=== PATIENT | male | born 1945 | race Caucasian/White ===

== ENCOUNTER 2017-09-10 10:04 | Emergency (ER) | payer MEDICARE, BC ==
[~2017-09-10] VITALS: Ht 170.2 cm; Wt 94.0 kg
[2017-09-10 10:09] VITALS: BP 158/79; PULSE 90; RESP 16; TEMP 98; O2SAT 97
[2017-09-10] MEDS ORDERED: ATOR20TA15 PO (10:56)
[2017-09-10] MEDS ORDERED: ASPI-516 CHEW (10:56)
[2017-09-10] MEDS ORDERED: LISI-519 PO (10:56)
[2017-09-10] MEDS ORDERED: METO25TA3 PO (10:56)
[2017-09-10] MEDS ORDERED: GABA600T PO (10:56)
--- NOTE | 2017-09-10 11:11 | PD ---
HPI Chief Complaint: Cold / Flu Symptoms Time Seen by Provider: 11:05 Travel History International Travel<30 days: No Contact w/Intl Traveler<30days: No Traveled to known affect area: No History of Present Illness HPI 72yo M with PMH of CAD s/p stent here with c/o cough and chest congestion for 1 week. Pt said he drove down from [place] 2 days ago because his brother was in hospice. Pt has been more stress lately and unable to sleep. Said he feels sob but it is more because he is coughing and has congestion. Denies any chest pain, fever, n/v, abdominal pain, focal weakness or numbness. PFSH Past Medical History Cardiovascular Problems: Yes High Cholesterol: Yes Hypertension: Yes Medical other: Yes (RESTLESS LEG) Myocardial Infarction: Yes Past Surgical History Appendectomy: Yes Other Surgery: Yes (NASAL) Social History Alcohol Use: No Tobacco Use: No Substance Use: No Allergies-Medications (Allergen,Severity, Reaction): Coded Allergies: No Known Allergies (Unverified , 09/10/17) Reported Meds & Prescriptions Reported Meds & Active Scripts Active Reported Aspirin 81 Mg Chew 81 Mg CHEW DAILY Atorvastatin (Atorvastatin Calcium) 20 Mg Tab 20 Mg PO HS Metoprolol Tartrate 25 Mg Tab Unknown Dose PO DAILY Gabapentin 600 Mg Tab 600 Mg PO DAILY Lisinopril 5 Mg Tab 5 Mg PO DAILY Review of Systems Except as stated in HPI: all other systems reviewed are Neg Physical Exam Narrative GENERAL: 72yo M not in distress. SKIN: Focused skin assessment warm/dry. HEAD: Atraumatic. Normocephalic. EYES: Pupils equal and round. No scleral icterus. No injection or drainage. ENT: Throat: Clear. Uvula midline. NECK: Trachea midline. No JVD. CARDIOVASCULAR: Regular rate and rhythm. No murmur appreciated. RESPIRATORY: No accessory muscle use. Clear to auscultation. Breath sounds equal bilaterally. GASTROINTESTINAL: Abdomen soft, non-tender, nondistended. MUSCULOSKELETAL: No obvious deformities. No clubbing. No cyanosis. No edema. NEUROLOGICAL: Awake and alert. No obvious cranial nerve deficits. Motor grossly within normal limits in all extremities. Normal speech. PSYCHIATRIC: Appropriate mood and affect; insight and judgment normal. Data Data Last Documented VS Vital Signs Date Time Temp Pulse Resp B/P (MAP) Pulse Ox O2 Delivery O2 Flow Rate FiO2 09/10/17 12:35 76 20 133/71 (91) 96 09/10/17 10:09 98.0 Orders Orders Complete Blood Count With Diff (09/10/17 11:06) Basic Metabolic Panel (Bmp) (09/10/17 11:06) D-Dimer (09/10/17 11:06) Act Partial Throm Time (Ptt) (09/10/17 11:06) Prothrombin Time / Inr (Pt) (09/10/17 11:06) Troponin I (09/10/17 11:06) Influenzae A/B Antigen (09/10/17 11:06) Electrocardiogram (09/10/17 11:06) Chest, Single Ap (09/10/17 11:06) Guaifen-Cod 200-20 Mg/10ml Liq (Robituss (09/10/17 11:15) Labs Laboratory Tests Test 09/10/17 11:20 White Blood Count 11.2 TH/MM3 Red Blood Count 4.76 MIL/MM3 Hemoglobin 14.4 GM/DL Hematocrit 43.4 % Mean Corpuscular Volume 91.4 FL Mean Corpuscular Hemoglobin 30.2 PG Mean Corpuscular Hemoglobin Concent 33.1 % Red Cell Distribution Width 12.3 % Platelet Count 215 TH/MM3 Mean Platelet Volume 8.0 FL Neutrophils (%) (Auto) 69.3 % Lymphocytes (%) (Auto) 14.7 % Monocytes (%) (Auto) 8.8 % Eosinophils (%) (Auto) 6.1 % Basophils (%) (Auto) 1.1 % Neutrophils # (Auto) 7.8 TH/MM3 Lymphocytes # (Auto) 1.6 TH/MM3 Monocytes # (Auto) 1.0 TH/MM3 Eosinophils # (Auto) 0.7 TH/MM3 Basophils # (Auto) 0.1 TH/MM3 CBC Comment DIFF FINAL Differential Comment Prothrombin Time 11.3 SEC Prothromb Time International Ratio 1.1 RATIO Activated Partial Thromboplast Time 23.4 SEC D-Dimer Quantitative (PE/DVT) 0.33 MG/L FEU Blood Urea Nitrogen 12 MG/DL Creatinine 0.90 MG/DL Random Glucose 106 MG/DL Calcium Level 8.5 MG/DL Sodium Level 143 MEQ/L Potassium Level 3.9 MEQ/L Chloride Level 108 MEQ/L Carbon Dioxide Level 25.2 MEQ/L Anion Gap 10 MEQ/L Estimat Glomerular Filtration Rate 82 ML/MIN Troponin I LESS THAN 0.02 NG/ML MDM Medical Decision Making Medical Screen Exam Complete: Yes Emergency Medical Condition: Yes Interpretation(s) EKG: NSR 81bpm. LAD. No significant ST elevation or depression. Differential Diagnosis URI vs. influenza vs. pneumonia vs. anxiety vs. PE (low suspicion) Narrative Course 72yo M with cough and congestion for 1 week. Pt has not really taken anything but cough drops. Normal vital signs with O2 sat at 97% on RA. Pt said he feels sob but it is more congestion. Low suspicion for PE, will do D-dimer due to recent long travel. Denies any history of PE/DVT, hemoptysis, recent surgery. Labs reviewed, no leukocytosis. Troponin negative. D-dimer negative. Influenza negative. CXR showed mild right basilar streakiness consistent with atelectasis and/or minimal infiltrate. Pt given robitussin and is feeling better. He said he wants to go home. Will cover with azithromycin. Return precautions given. Diagnosis Primary Impression: Bronchitis Patient Instructions: General Instructions Departure Forms: Tests/Procedures Additional Instructions: Please follow up with your primary care physician in 3-7 days. Return to the ED if symptoms worsen. Med/Other Pt SpecificInfo: Prescription(s) given Scripts Dextromethorphan (Robitussin Lingering Cold) 15 Mg Cap 30 MG PO Q8H Y for COUGH for 5 Days, #30 CAP 0 Refills Prov: Yamile Swanson DO 09/10/17 Azithromycin (Zithromax Z-Son) 250 Mg Dspk 250 MG PO DIRECTED for Infection, #1 DSPK 0 Refills 500 MG (2 tabs) day 1, then 1 tab days 2-5. Prov: Yamile Swanson DO 09/10/17 Disposition: DISCHARGE HOME Condition: Stable SwansonYamile DO Sep 10, 2017 11:11
[2017-09-10] MEDS ORDERED: guaiFENesin/CODEINE SYRUP 200 MG/20 MG/10 ML CUP PO ONE (11:15)
[2017-09-10 11:29] VITALS: BP 133/83; PULSE 101; RESP 20; O2SAT 96
[2017-09-10 11:29] LABS: AUTOMATED NEUTROPHIL # 7.8 TH/MM3 (1.8-7.7); BASOPHIL # 0.1 TH/MM3 (0-0.2); BASOPHIL % 1.1 % (0.0-2.0); EOSINOPHIL # 0.7 TH/MM3 (0-0.4); EOSINOPHIL % 6.1 % (0.0-4.0); HEMATOCRIT 43.4 % (39.0-51.0); HEMOGLOBIN 14.4 GM/DL (13.0-17.0); LYMPH % 14.7 % (9.0-44.0); LYMPHOCYTE # 1.6 TH/MM3 (1.0-4.8); MEAN CELL VOLUME 91.4 FL (80.0-100.0); MEAN CORPUSCULAR HEMOGLOBIN 30.2 PG (27.0-34.0); MEAN CORPUSCULAR HGB CONC 33.1 % (32.0-36.0); MONO % 8.8 % (0.0-8.0); NEUT % 69.3 % (16.0-70.0); PLATELET COUNT 215 TH/MM3 (150-450); RED BLOOD COUNT 4.76 MIL/MM3 (4.50-5.90); RED CELL DISTRIBUTION WIDTH 12.3 % (11.6-17.2); WHITE BLOOD COUNT 11.2 TH/MM3 (4.0-11.0)
[2017-09-10 11:38] LABS: CHLORIDE 108 MEQ/L (98-107); SODIUM (NA) 143 MEQ/L (136-145)
[2017-09-10 11:40] LABS: CALCIUM 8.5 MG/DL (8.5-10.1)
[2017-09-10 11:41] LABS: BICARBONATE 25.2 MEQ/L (21.0-32.0); BLOOD UREA NITROGEN 12 MG/DL (7-18); GLUCOSE,RANDOM 106 MG/DL (74-106)
[2017-09-10 11:44] LABS: GLOMERULAR FILTRATION RATE 82 ML/MIN (>89)
[2017-09-10 11:49] LABS: TROPONIN I LESS THAN 0.02 NG/ML (0.02-0.05)
[2017-09-10 11:51] LABS: INTERNATIONAL NORMALIZED RATIO 1.1 RATIO; PROTHROMBIN TIME - PATIENT 11.3 SEC (9.8-11.6)
[2017-09-10 11:58] LABS: D-DIMER 0.33 MG/L FEU (0.00-0.50)
--- NOTE | 2017-09-10 12:04 | RADRPT ---
EXAM DATE/TIME: 09/10/2017 11:28 [facility] COMPARISON: No previous studies available for comparison. INDICATIONS : Short of breath, cough MEDICAL HISTORY : Myocardial infarction. SURGICAL HISTORY : None. ENCOUNTER: Initial ACUITY: 1 day PAIN SCORE: 0/10 LOCATION: Bilateral chest FINDINGS: Mild bibasilar streakiness is noted consistent with atelectasis and/or minimal infiltrate. Clinical c orrelation is recommend. The heart is minimally prominent. CONCLUSION: Mild right basilar streakiness consistent with atelectasis absence or minimal infiltrate. Clinical co rrelation is recommended. Minimal cardiomegaly. Geraldo Sandhu MD on September 10, 2017 at 12:01 Board Certified Radiologist. This report was verified electronically.
[2017-09-10 12:35] VITALS: BP 133/71; PULSE 76; RESP 20; O2SAT 96
[2017-09-10] MEDS ORDERED: ROBICAP2 PO (12:44)
[2017-09-10] MEDS ORDERED: ZITHTAB PO (12:44)
--- NOTE | 2017-09-12 00:34 | EKG ---
Date Performed: 09/10/2017 Time Performed: 11:35:38 PTAGE: 72 years EKG: Sinus rhythm VOLTAGE CRITERIA FOR LVH POSSIBLE SEPTAL MYOCARDIAL INFARCTION ABNORMAL ECG NO PREVIOUS TRACING DOCTOR: Tramaine Noble Interpretating Date/Time 09/12/2017 00:19:39
== END 2017-09-10 12:59 | disposition home or self-care (01) ==
LOC: PHED 10:04
DX: J40 Bronchitis, not specified as acute or chronic (principal); I51.7 Cardiomegaly; R94.31 Abnormal electrocardiogram [ECG] [EKG]; E78.00 Pure hypercholesterolemia, unspecified; I10 Essential (primary) hypertension; G25.81 Restless legs syndrome; I25.2 Old myocardial infarction; I25.10 Atherosclerotic heart disease of native coronary artery without angina pectoris; Z79.82 Long term (current) use of aspirin
CPT/HCPCS: 71045; 80048; 84484; 85025; 85379; 85610; 85730; 87804; 93005; 99285